=== PATIENT | female | born 1950 | race American Indian/Alaskan Native ===

== ENCOUNTER 2017-12-21 16:13 | Observation (INO) | payer MEDICARE ==
--- NOTE | 2017-12-21 16:30 | Emergency Department Report ---
ED Abdominal Pain HPI - General Chief Complaint: Abdominal Pain Stated Complaint: ABD PAIN/N/V Time Seen by Provider: 12/21/17 16:29 Source: patient (.) - History of Present Illness Initial Comments: States that she had a colonoscopy this morning at [facility], and reports that she is now nauseated and has abdominal pain. Says it just "hurts" and moreso in the "middle going to the left side." She reports feeling like she needs to burp and reports feeling like she has indigestion. She had a colonoscopy about 13 years ago and reports never feeling like this. PMHX of HTN, Hypothyroid, osteo- and rheumatoid arthritis. She recently started smoking in September. Also reports vomiting.She has passed some flatus since the procedure. Pain at this time is staying the same without worsening. MD Complaint: abdominal pain -: hour(s) (6) Location: LLQ, epigastric Radiation: LLQ, epigastric Migration to: epigastric Severity scale (0 -10): 8 Quality: cramping, fullness Consistency: intermittent Worsens With: nothing Context: recent surgery/procedure (colonoscopy) Associated Symptoms: nausea, vomiting, chills. denies: diarrhea, fever, constipation, dysuria, hematemesis, hematochezia, melena, hematuria, anorexia, syncope - Related Data Home Medications Medication Instructions Recorded Confirmed Last Taken ALPRAZolam [Xanax TAB] 0.5 mg PO BID PRN 12/21/17 12/21/17 Unknown Amlodipine Besylate [Norvasc] 5 mg PO QDAY 12/21/17 12/21/17 Unknown Hydroxychloroquine [Plaquenil] 400 mg PO QDAY 12/21/17 12/21/17 Unknown Levothyroxine [Synthroid] 100 mcg PO QDAY 12/21/17 12/21/17 Unknown Losartan/Hydrochlorothiazide 1 tab PO QDAY 12/21/17 12/21/17 Unknown [Hyzaar 100-25 TAB] Oxycodone HCl/Acetaminophen 1 each PO TID 12/21/17 12/21/17 Unknown [Percocet 10/325 mg] Allergies Allergy/AdvReac Type Severity Reaction Status Date / Time metronidazole [From Flagyl] Allergy Hives Verified 12/21/17 17:34 Tetracyclines Allergy Hives Verified 12/21/17 17:34 ED Review of Systems ROS: Stated complaint: ABD PAIN/N/V Other details as noted in HPI Comment: All other systems reviewed and negative Constitutional: weakness Eyes: as per HPI ENT: as per HPI Respiratory: see HPI Cardiovascular: as per HPI. denies: chest pain, palpitations, dyspnea on exertion Gastrointestinal: abdominal pain, nausea, vomiting Genitourinary: as per HPI Musculoskeletal: as per HPI Skin: as per HPI Neurological: as per HPI Psychiatric: as per HPI Hematological/Lymphatic: as per HPI ED Past Medical Hx - Past Medical History Previous Medical History?: Yes - Medications Home Medications: Home Medications Medication Instructions Recorded Confirmed Last Taken Type ALPRAZolam [Xanax TAB] 0.5 mg PO BID PRN 12/21/17 12/21/17 Unknown History Amlodipine Besylate [Norvasc] 5 mg PO QDAY 12/21/17 12/21/17 Unknown History Hydroxychloroquine [Plaquenil] 400 mg PO QDAY 12/21/17 12/21/17 Unknown History Levothyroxine [Synthroid] 100 mcg PO QDAY 12/21/17 12/21/17 Unknown History Losartan/Hydrochlorothiazide 1 tab PO QDAY 12/21/17 12/21/17 Unknown History [Hyzaar 100-25 TAB] Oxycodone HCl/Acetaminophen 1 each PO TID 12/21/17 12/21/17 Unknown History [Percocet 10/325 mg] ED Physical Exam - General General appearance: alert - Head Head exam: Present: atraumatic, normocephalic - Eye Eye exam: Present: normal appearance, PERRL, EOMI - ENT ENT exam: Present: normal exam - Respiratory Respiratory exam: Present: normal lung sounds bilaterally - Cardiovascular Cardiovascular Exam: Present: regular rate, normal rhythm, normal heart sounds - GI/Abdominal GI/Abdominal exam: Present: soft, tenderness (generalized), normal bowel sounds. Absent: distended, guarding, rebound, rigid - Extremities Exam Extremities exam: Present: normal inspection, full ROM, normal capillary refill - Back Exam Back exam: Present: normal inspection - Neurological Exam Neurological exam: Present: alert, oriented X3, CN II-XII intact - Psychiatric Psychiatric exam: Present: normal affect, normal mood - Skin Skin exam: Present: warm, dry, intact, normal color. Absent: rash ED Course Vital Signs 12/21/17 12/21/17 12/21/17 16:32 16:35 16:45 Temperature 99.8 F H Pulse Rate 79 Respiratory 16 Rate Blood Pressure 140/82 151/77 Blood Pressure 140/82 [Right] O2 Sat by Pulse 84 100 100 Oximetry 12/21/17 12/21/17 12/21/17 17:00 17:15 17:39 Temperature Pulse Rate Respiratory 16 Rate Blood Pressure 131/62 144/69 144/69 Blood Pressure [Right] O2 Sat by Pulse 100 100 87 Oximetry 12/21/17 12/21/17 12/21/17 17:46 17:55 18:00 Temperature Pulse Rate Respiratory 16 Rate Blood Pressure 144/69 132/69 Blood Pressure [Right] O2 Sat by Pulse 100 100 Oximetry 12/21/17 12/21/17 12/21/17 18:15 18:30 18:46 Temperature Pulse Rate Respiratory Rate Blood Pressure 153/73 128/64 128/64 Blood Pressure [Right] O2 Sat by Pulse 100 100 100 Oximetry 12/21/17 12/21/17 12/21/17 19:00 19:30 20:00 Temperature 100.7 F H Pulse Rate 89 Respiratory 19 Rate Blood Pressure 150/59 136/63 Blood Pressure 144/57 [Right] O2 Sat by Pulse 99 97 100 Oximetry - Reevaluation(s) Reevaluation #1: 12/21/17 22:20 I discussed the case with her GI doctor who did the colonoscopy over at [facility] this morning. He stated that if the CAT scan was normal then she could go home if she was feeling better. However it appears that the patient continues to have intractable nausea and vomiting. While her belly is soft and there are no signs of an acute abdomen she continues to complain of abdominal pain. Dr. Penn is her GI doctor who performed the procedure today. She did tolerate the procedure well and he does report that there were only 2 very small polyps that were effectively removed during the procedure. Upon reassessment the patient continues to complain of abdominal pain and nausea. She received Zofran multiple times here in the ER. She also appears to be actively having dry heaves at times. I discussed the case with the hospitalist, and this time we will observe the patient. ED Medical Decision Making - Lab Data Result diagrams: 12/21/17 17:10 12/21/17 17:10 Critical care attestation.: If time is entered above; I have spent that time in minutes in the direct care of this critically ill patient, excluding procedure time. ED Disposition Clinical Impression: Abdominal pain Qualifiers: Abdominal location: generalized Qualified Code(s): R10.84 - Generalized abdominal pain Intractable nausea and vomiting Qualifiers: Vomiting type: cyclical vomiting Qualified Code(s): G43.A1 - Cyclical vomiting , intractable Disposition: -09 OP ADMIT IP TO THIS HOSP Is pt being admited?: Yes Does the pt Need Aspirin: No Condition: Stable Instructions: Abdominal Pain (ED)
[2017-12-21] MEDS ORDERED: NACL 0.9% 1000 ML 1,000 ML IV ONE (17:00)
[2017-12-21] MEDS ORDERED: ZOFRAN IV ONE ×2 (17:00→21:58)
[2017-12-21] MEDS ORDERED: TORADOL IV ONE (17:00)
[2017-12-21 17:30] LABS: Basophils # (Auto) 0.1 K/mm3 (0.0-0.1); Basophils % (Auto) 0.5 % (0.0-1.8); Eosinophils # (Auto) 0.1 K/mm3 (0.0-0.4); Eosinophils % (Auto) 0.5 % (0.0-4.3); Hematocrit 37.3 % (30.3-42.9); Hemoglobin 12.5 gm/dl (10.1-14.3); Lymphocytes # (Auto) 0.9 K/mm3 (1.2-5.4); Lymphocytes % (Auto) 8.8 % (13.4-35.0); Mean Corpuscular HGB Conc 33 % (30-34); Mean Corpuscular Hemoglobin 27 pg (28-32); Mean Corpuscular Volume 82 fl (79-97); Monocytes # (Auto) 0.3 K/mm3 (0.0-0.8); Monocytes % (Auto) 3.4 % (0.0-7.3); Platelet Count 251 K/mm3 (140-440); Red Blood Count 4.55 M/mm3 (3.65-5.03); Red Cell Distribution Width 13.5 % (13.2-15.2)
[2017-12-21 17:50] LABS: Alanine Aminotransferase 11 units/L (7-56); BUN/Creatinine Ratio 8; Blood Urea Nitrogen 6 mg/dL (7-17); Calcium 9.8 mg/dL (8.4-10.2); Hemolysis Index 53; Lipase 22 units/L (13-60)
--- NOTE | 2017-12-21 18:31 | Cat Scan Report ---
FINAL REPORT EXAM: CT ABDOMEN PELVIS WO CON HISTORY: Abdominal Pain TECHNIQUE: CT of the abdomen and pelvis was performed without intravenous contrast. Reconstructions were included in the coronal and sagittal planes. PRIORS: None. FINDINGS: Lower thorax: The lung bases are clear. The visualized portions of the heart are normal. Liver: The liver is normal in attenuation. No intrahepatic biliary duct dilation. No focal hepatic lesions. Gallbladder/ biliary system: Cholelithiasis is seen. No gallbladder wall thickening or pericholecystic fluid. The common bile duct appears nondilated. Spleen: No splenic lesions are seen. Pancreas: No pancreatic lesions are seen. No pancreatic duct dilation. Kidneys: No renal masses, cysts or hydronephrosis. No renal or ureteral calcifications. Adrenal glands: No adrenal masses. Vasculature: The abdominal aorta is nondilated. Atherosclerotic calcifications are seen throughout the abdominal aorta. Lymph nodes: No enlarged lymph nodes are seen in the abdomen or pelvis. Bowel, mesentery, peritoneum: No bowel obstruction. No free fluid or free air. The appendix is normal. Colonic diverticulosis is seen. No evidence of diverticulitis. No bowel wall thickening. Submucosal fat is seen in the ascending and transverse colon. Urinary bladder: No filling defects are seen. Pelvis: There is a small amount of free fluid in the pelvis. The uterus is grossly unremarkable. Ovaries are not well seen. Abdominal wall: There is a small fat containing umbilical hernia. Bones: Multilevel degenerative changes are seen in the lumbar spine. Mild grade 1 anterolisthesis of L4 on L5 is likely chronic related to facet arthropathy. IMPRESSION: 1. Submucosal fat within ascending and transverse colon is likely related to chronic or prior inflammation or infection. 2. Cholelithiasis. 3. Small amount of free fluid in the pelvis is likely physiologic. 4. Colonic diverticulosis.
[2017-12-21 20:35] LABS: Bacteria,Urine 1+ /HPF (Negative); Bilirubin,Urine NEG (Negative); Blood,Urine NEG (Negative); Color,Urine Straw (Yellow); Hyaline Casts,Urine 1 /LPF; Mucus,Urine FEW /HPF; Protein,Urine <15 mg/dL mg/dL (Negative); Urobilinogen,Urine < 2.0 mg/dL (<2.0)
[2017-12-21] MEDS ORDERED: K-DUR PO ONE (21:38)
[2017-12-21] MEDS ORDERED: MORPHINE IV ONE (22:20)
[2017-12-21] MEDS ORDERED: MORPHINE ONE (22:25)
--- NOTE | 2017-12-21 22:49 | History and Physical Report ---
History of Present Illness Date of examination: 12/21/17 History of present illness: 67 year old woman with hypertension, hypothyroidism RA comes to the ER for nausea, vomiting after colonoscopy today. She has multiple episodes of vomiting. Also complain of lower abdominal pain, sharp, intensity 5/10, no radiation, cannot identify exacerbating factors, relief with mophine. Review Of Systems: Constitutional: no weight loss Ears, eyes, nose, mouth and throat: no nasal congestion, no nasal discharge, no sinus pressure, blurry vision, diplopia Neck: No neck pain or rigidity. Cardiovascular: No chest pain, palpitations Respiratory: No shortness of breath, cough Gastrointestinal: No hematochezia Genitourinary : no dysuria, frequency , hematuria Musculoskeletal: no muscle ache Integumentary: no rash, no pruritis Neurological: no parathesias, focal weakness Endocrine: no cold or heat intolerance, no polyuria or polydipsia Hematologic/Lymphatic: no easy bruising, no easy bleeding, no gland swelling Allergic/Immunologic: no urticaria, no angioedema. PAST MEDICAL HISTORY: hypertension, hypothyroidism RA PAST SURGICAL HISTORY: Rotator cuff SOCIAL HISTORY: Social alcohol, tobacco, no drugs FAMILY HISTORY: Hypertension Medications and Allergies Allergies Allergy/AdvReac Type Severity Reaction Status Date / Time metronidazole [From Flagyl] Allergy Hives Verified 12/21/17 17:34 Tetracyclines Allergy Hives Verified 12/21/17 17:34 Home Medications Medication Instructions Recorded Confirmed Last Taken Type ALPRAZolam [Xanax TAB] 0.5 mg PO BID PRN 12/21/17 12/21/17 Unknown History Amlodipine Besylate [Norvasc] 5 mg PO QDAY 12/21/17 12/21/17 Unknown History Hydroxychloroquine [Plaquenil] 400 mg PO QDAY 12/21/17 12/21/17 Unknown History Levothyroxine [Synthroid] 100 mcg PO QDAY 12/21/17 12/21/17 Unknown History Losartan/Hydrochlorothiazide 1 tab PO QDAY 12/21/17 12/21/17 Unknown History [Hyzaar 100-25 TAB] Oxycodone HCl/Acetaminophen 1 each PO TID 12/21/17 12/21/17 Unknown History [Percocet 10/325 mg] Exam - Physical Exam Narrative exam: Gen. appearance: Patient lying in bed in no acute distress HEENT: Normocephalic/atraumatic, pupils equal round reactive to light, extra occular movement intact, no scleral icterus, no JVD or thyromegaly or nodule, neck is supple, mucous membrane moist, no erythema or exudate Heart: S1-S2, regular rate and rhythm Lungs: Clear to auscultation bilateral breathing comfortable Abdomen: Positive bowel sounds, nontender, nondistended, no organomegaly Extremities: No edema, cyanosis, clubbing Neuro:: Oriented 3 , cranial nerves II-12 intact, speech, motor intact Skin: No rash, nodules, warm dry - Constitutional Vitals: Temp Pulse Resp BP Pulse Ox 100.7 F H 89 19 136/63 100 12/21/17 19:30 12/21/17 19:30 12/21/17 19:30 12/21/17 20:00 12/21/17 20:00 Results - Labs CBC & Chem 7: 12/21/17 17:10 12/21/17 17:10 Labs: Abnormal lab results 12/21/17 12/21/17 Range/Units 17:10 17:10 MCH 27 L (28-32) pg Lymph % (Auto) 8.8 L (13.4-35.0) % Lymph # 0.9 L (1.2-5.4) K/mm3 Seg Neutrophils % 86.8 H (40.0-70.0) % Seg Neutrophils # 8.4 H (1.8-7.7) K/mm3 Potassium 3.0 L (3.6-5.0) mmol/L BUN 6 L (7-17) mg/dL Glucose 111 H (65-100) mg/dL - Imaging and Cardiology CT scan - abdomen: report reviewed CT scan - pelvis: report reviewed Assessment and Plan Assessment Intractable nausea, vomiting most likely to the anesthesia Abdominal PAin, NOS, due to #1 hypertension hypothyroidism RA Plan Admit to medicine Start IV fluid, morphine, Dvt prophalaxis
[2017-12-21] MEDS ORDERED: MORPHINE IV PRN (22:51)
[2017-12-21] MEDS ORDERED: NACL 0.45% 1000 ML 1,000 ML IV ONE (23:23)
[2017-12-21] MEDS: NACL 0.45% 1000 ML 1,000 ML IV SCH (23:31)
[2017-12-21] MEDS: ZOFRAN IV PRN (23:49)
[2017-12-22 07:34] LABS: Basophils % (Auto) 0.3 % (0.0-1.8); Hematocrit 35.1 % (30.3-42.9); Hemoglobin 11.8 gm/dl (10.1-14.3); Lymphocytes # (Auto) 1.1 K/mm3 (1.2-5.4); Lymphocytes % (Auto) 10.5 % (13.4-35.0); Mean Corpuscular HGB Conc 34 % (30-34); Mean Corpuscular Hemoglobin 28 pg (28-32); Mean Corpuscular Volume 82 fl (79-97); Monocytes # (Auto) 0.9 K/mm3 (0.0-0.8); Platelet Count 271 K/mm3 (140-440); Red Blood Count 4.29 M/mm3 (3.65-5.03); Red Cell Distribution Width 13.6 % (13.2-15.2)
[2017-12-22] MEDS: TYLENOL PO PRN ×2 (07:41→14:20)
[2017-12-22 08:14] LABS: BUN/Creatinine Ratio 8; Blood Urea Nitrogen 7 mg/dL (7-17); Calcium 9.6 mg/dL (8.4-10.2); Hemolysis Index 7
--- NOTE | 2017-12-22 09:49 | Consultation ---
REASON FOR CONSULTATION: Abdominal pain, nausea and vomiting. HISTORY OF PRESENT ILLNESS: Brief consultation, the patient is a 67-year-old woman who underwent a colonoscopy yesterday, but developed some nausea with vomiting and vague abdominal pain yesterday. She was subsequently sent to the Emergency Room for evaluation. CT scan of the abdomen was unremarkable except for gallstones and diverticulosis. She is feeling much better and at this time, would like to go home for continued care on an outpatient basis. PAST MEDICAL HISTORY: 1. Hypothyroidism. 2. Hypertension. 3. Rheumatoid arthritis. PAST SURGICAL HISTORY: Rotator cuff surgery. SOCIAL HISTORY: Does not use any recreational drugs. Drinks alcohol socially and smokes cigarettes. CURRENT MEDICATIONS: See DEC. DRUG ALLERGIES: FLAGYL, which gives hives and TETRACYCLINE. Social history as outlined above. FAMILY HISTORY: Noncontributory. REVIEW OF SYSTEMS: Feeling much better at this time, but had vomiting and vague abdominal pain post-surgery. PHYSICAL EXAMINATION: GENERAL: The patient is a pleasant middle-aged -[place] woman in no acute distress. VITAL SIGNS: Show BP of 135/75, pulse of 85 per minute, respiratory rate of 18, temperature of 99.6. HEENT: Pupils equal, round, reactive to light. She is anicteric. NECK: Supple, with no JVD. LUNGS: Clear to auscultation. HEART: S1, S2 heard. ABDOMEN: Soft, nontender. Liver, spleen, and kidneys not palpable. Bowel sounds are present and normoactive. EXTREMITIES: Reveals no pedal edema or cyanosis. NEUROLOGIC: She is alert and oriented to time, person, and place with no focal deficit. ASSESSMENT AND PLAN: 1. Nausea and vomiting, resolved. 2. Abdominal pain, resolved. 3. Diverticulosis. 4. Gallstones. She is feeling much better at this time. Given the fact that she had a low grade fever of 100.1, although she had a heating pad on one must worry about a slight risk of aspiration pneumonia. It is most likely that she had a reaction to the anesthesia, doubt active pneumonia or any disease, but I will place her empirically on Levaquin 500 mg p.o. daily for 7 days. She will be seen again by me in 2 days or next week. We will follow her on outpatient basis. She was advised to come back to the hospital or give me a call if she develops a fever, severe abdominal pain, or any kind of untoward reaction. this line of management was carefully discussed with the patient and her son and they verbalized understanding. Thank you very much for allowing me to participate in management of your patient. I do appreciate it. JOB# [id number] BRIGID/NTS MTDD
[2017-12-22] MEDS ORDERED: LOVENOX SUB-Q SCH (10:00)
[2017-12-22] MEDS: LEVAQUIN PO SCH (10:33)
[2017-12-22] MEDS: LOVENOX SUB-Q SCH (10:33)
[2017-12-22] MEDS ORDERED: K-DUR PO ONE (11:04)
--- NOTE | 2017-12-22 14:16 | Progress Note ---
Assessment and Plan Intractable nausea, vomiting most likely to the anesthesia Abdominal PAin, NOS, due to colitis ? Hypokalemia likely from GI loss hypertension hypothyroidism h/o RA - cont supportive care, clear liquid diet - cont IV fluid, morphine, Dvt prophalaxis - placed on levaquin for posible gastroenteritis - resume home meds, repeat potassium and monitor BMP Brief history: 67 year old woman with hypertension, hypothyroidism, RA comes to the ER for nausea, vomiting after colonoscopy. She has multiple episodes of vomiting. Admitted for further monitoring. Radiological test: CT abdomen and pelvis: Submucosal fat within the ascending and transverse colon is likely related to chronic primary inflammation or infection, cholelithiasis, small amount of free fluid in the pelvis is likely physiologic, colonic diverticulosis Hospitalist Physical exam: GENERAL: well-developed and well-nourished AAF lying on bed appeared to be in no discomfort. HEENT: Normocephalic. Atraumatic. No conjunctival congestion or icterus. Patient has moist mucous membranes. NECK: Supple. Trachea midline. CHEST/LUNGS: Clear to auscultated bilaterally, breathing nonlabored. No wheezes crackles or rhonchi. HEART/CARDIOVASCULAR: Regular in rate and rhythm. S1 and S2 positive. ABDOMEN: Abdomen is soft, mild diffuse tender. Patient has normal bowel sounds. SKIN: There is no rash. Warm and dry. NEURO: No focal motor deficit. Follows command. MUSCULOSKELETAL: No joint effusion or tenderness. EXTRIMITY: No edema, no cyanosis or clubbing. PSYCH: Cooperative. Subjective Date of service: 12/22/17 Interval history: Patient seen and examined. Medical records and medication list reviewed. No acute event overnight noted by the RN. Patient denies any chest pain or difficulty breathing. Patient is not tolerating regular diet. c/o nausea/vomiting Discussed plan of care at bedside with patient. Objective - Constitutional Vitals: Vital Signs - 12hr 12/22/17 12/22/17 12/22/17 05:08 08:30 08:41 Temperature 99.6 F 100.0 F H Pulse Rate 84 Respiratory 18 18 18 Rate Blood Pressure 135/75 124/60 O2 Sat by Pulse 99 Oximetry - Labs CBC & Chem 7: 12/22/17 06:57 12/23/17 09:40 Labs: Abnormal lab results 12/21/17 12/21/17 12/22/17 Range/Units 17:10 17:10 06:57 MCH 27 L (28-32) pg Lymph % (Auto) 8.8 L 10.5 L (13.4-35.0) % Steele % (Auto) 9.0 H (0.0-7.3) % Lymph # 0.9 L 1.1 L (1.2-5.4) K/mm3 Steele # 0.9 H (0.0-0.8) K/mm3 Seg Neutrophils % 86.8 H 80.2 H (40.0-70.0) % Seg Neutrophils # 8.4 H 8.1 H (1.8-7.7) K/mm3 Potassium 3.0 L (3.6-5.0) mmol/L BUN 6 L (7-17) mg/dL Glucose 111 H (65-100) mg/dL 12/22/17 Range/Units 06:57 MCH (28-32) pg Lymph % (Auto) (13.4-35.0) % Steele % (Auto) (0.0-7.3) % Lymph # (1.2-5.4) K/mm3 Steele # (0.0-0.8) K/mm3 Seg Neutrophils % (40.0-70.0) % Seg Neutrophils # (1.8-7.7) K/mm3 Potassium 3.0 L (3.6-5.0) mmol/L BUN (7-17) mg/dL Glucose (65-100) mg/dL
[2017-12-22] MEDS: NACL 0.45% 1000 ML 1,000 ML IV SCH (16:47)
[2017-12-23] MEDS: NACL 0.45% 1000 ML 1,000 ML IV SCH (03:02)
[2017-12-23] MEDS: ZOFRAN IV PRN ×2 (03:05→08:33)
--- NOTE | 2017-12-23 07:37 | Event Note ---
Date: 12/23/17 Ms Kizzy Lala is a 67 year lod woman who had N&V with mild abdominal pain post colonoscopy. Although her vital signs were stable and her abdominal exam was benign, she was sent to the ER for evaluation and a CT scan CT was unremarkable and did not show any free air or fluids and her WBC was normal. She was admitted for observation. I saw her yesterday am and she was in good spirits and ready to go home. Vitals signs are stable and her abdominal pain, N&V had resolved and her abdomen was soft and non tender From a GI standpoint, she is Ok for outpatient care. She was advised to see me 2 -5 days after discharge. Impression is probably reaction to anesthesia Suggest: 1. Levaquin 500mg for I week for possible mild aspiration pnemonitis, albiet unlikely 2. Empiric care with Zofran for N&V and Bentyl for prn abdominal pain 3. Outpatient GI care Thanks everyone for all you care
[2017-12-23] MEDS: LOVENOX SUB-Q SCH (09:13)
[2017-12-23] MEDS: LEVAQUIN PO SCH (09:13)
[2017-12-23 10:22] LABS: BUN/Creatinine Ratio 9; Blood Urea Nitrogen 8 mg/dL (7-17); Calcium 9.6 mg/dL (8.4-10.2); Hemolysis Index 16
[2017-12-23] MEDS ORDERED: XANAX PO PRN (11:16)
[2017-12-23] MEDS ORDERED: KCL 10MEQ/100ML 10 MEQ/100 ML BAG IV SCH (12:00)
[2017-12-23] MEDS ORDERED: PROTONIX IV SCH (12:00)
[2017-12-23] MEDS ORDERED: PERCOCET 5/325 PO PRN (12:09)
[2017-12-23 12:23] VITALS: BP 141/72
[2017-12-23] MEDS ORDERED: NORVASC PO SCH (13:00)
[2017-12-23] MEDS ORDERED: PLAQUENIL PO SCH (13:00)
[2017-12-23] MEDS ORDERED: KCL 30 MEQ in NACL 0.9% 500 ML 300 ML IV ONE (13:30)
[2017-12-23] MEDS ORDERED: PROTONIX PO SCH (13:30)
--- NOTE | 2017-12-23 13:42 | Discharge Summary ---
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 She has multiple episodes of vomiting. In the ER a CT scan was done, CT was unremarkable and did not show any free air or fluids and her WBC was normal. She was admitted for observation. Her abdomen was benign, GI was consulted, she was advised to follow up with GI as outpt 2-5 days after discharge. Patient was placed on abx for possible colitis. She did ot c/o any diarrhea or bloody stool. Her home meds resumed, discharged home in stable condition. Discharge diagnosis: Intractable nausea, vomiting most likely to the anesthesia Abdominal PAin, possible colitis, improved Hypokalemia likely from GI loss hypertension hypothyroidism h/o RA, h/o anxiety and chronic pain Radiological test: CT abdomen and pelvis: Submucosal fat within the ascending and transverse colon is likely related to chronic primary inflammation or infection, cholelithiasis, small amount of free fluid in the pelvis is likely physiologic, colonic diverticulosis Hospitalist Physical exam: GENERAL: well-developed and well-nourished AAF lying on bed appeared to be in no discomfort. HEENT: Normocephalic. Atraumatic. No conjunctival congestion or icterus. Patient has moist mucous membranes. NECK: Supple. Trachea midline. CHEST/LUNGS: Clear to auscultated bilaterally, breathing nonlabored. No wheezes crackles or rhonchi. HEART/CARDIOVASCULAR: Regular in rate and rhythm. S1 and S2 positive. ABDOMEN: Abdomen is soft, non tender. Patient has normal bowel sounds. SKIN: There is no rash. Warm and dry. NEURO: No focal motor deficit. Follows command. MUSCULOSKELETAL: No joint effusion or tenderness. EXTRIMITY: No edema, no cyanosis or clubbing. PSYCH: Cooperative. Disposition: DC- TO HOME OR SELFCARE Time spent for discharge: 32 minutes Core Measure Documentation - Palliative Care Palliative Care/ Comfort Measures: Not Applicable - Core Measures Any of the following diagnoses?: none Exam - Constitutional Vitals: Temp Pulse Resp BP Pulse Ox 99.3 F 78 18 141/72 100 12/23/17 07:53 12/23/17 12:21 12/23/17 10:00 12/23/17 12:21 12/23/17 10:00 Plan Activity: advance as tolerated Weight Bearing Status: Non-Weight Bearing Diet: low fat, low cholesterol, advance as tolerated Follow up with: PRIMARY CARE,MD [Primary Care Provider] - 3-5 Days Prescriptions: Levofloxacin [Levaquin TAB] 500 mg PO QDAY #5 tablet Ondansetron [Zofran TAB] 4 mg PO Q8HR PRN #20 tablet PRN Reason: Nausea
[2017-12-23] MEDS ORDERED: NON-FORMULARY (Oxycodone Hcl/Acetaminophen [Percocet 10/325 Mg] 1 EACH) PO SCH (14:00)
[2017-12-23] MEDS ORDERED: K-DUR PO ONE (14:09)
[2017-12-23] MEDS ORDERED: D5NS 1,000 ML IV SCH (15:00)
--- NOTE | 2017-12-23 23:53 | Consultation ---
INDICATION: Nausea, vomiting. HISTORY OF PRESENT ILLNESS: The patient is a 67-year-old black female who is being seen by GI for nausea, vomiting. The patient reports she had a colonoscopy today by Dr. Penn. The patient reports colonoscopy showed no significant pathology. The patient reports that after sometime, she started having severe nausea, vomiting. She reports she was unable to keep anything down. She reports some upper abdominal pain with these symptoms. She denies history of nausea, vomiting prior. She denies any lower GI symptoms including diarrhea, constipation or rectal bleeding. Denies any weight loss. The patient subsequently came to Emergency Room where she was seen and admitted. PAST MEDICAL HISTORY: 1. Hypertension. 2. Hypothyroidism. 3. Rheumatoid arthritis. MEDICATIONS: See chart. ALLERGIES: No known drug allergies. SOCIAL HISTORY: Denies alcohol, tobacco, or IV drug abuse. FAMILY HISTORY: Negative for colon cancer, IBD, or liver disease. REVIEW OF SYSTEMS: GENERAL: Reports mild weakness. HEENT: No visual complaints or tinnitus. PULMONARY: Denies shortness of breath. No cough. No chest pain. GASTROINTESTINAL: Reports nausea, vomiting. All points of a 13-point review of systems otherwise negative. PHYSICAL EXAMINATION: VITAL SIGNS: Temperature of 99.3, pulse 81, respirations 18, blood pressure 137/66. GENERAL: Fairly nourished, but thin black female in no acute distress. HEENT: Pupils equal, round and reactive. PULMONARY: Clear to auscultation bilaterally. CARDIOVASCULAR: Regular rhythm. Normal S1, S2. ABDOMEN: Positive bowel sounds, soft. SKIN: No obvious rashes. LABORATORY DATA: Pertinent for white count of 10, hemoglobin and hematocrit 11.8 and 35.1, platelet count of 271. Chem-7 within normal limits except for potassium of 3.2. CT scan showed no significant GI pathology. ASSESSMENT AND PLAN: A 67-year-old female presented with nausea, vomiting after having a colonoscopy earlier today. The patient since that time has been stable. Agree with medications. She reports her nausea and vomiting is improving. She denies any epigastric pain. She is tolerating p.o. Management is noted below. PLAN: 1. Antiemetics p.r.n. 2. Advance diet. 3. Okay to discharge from GI standpoint, will follow up with Dr. Penn as an outpatient. 4. We will sign off, call if needed. JOB# [id number] CAB/NTS
[2017-12-24] MEDS ORDERED: SYNTHROID PO SCH (06:00)
[2017-12-24] MEDS ORDERED: LEVAQUIN 750MG/150ML 750 MG/150 ML BAG IV SCH (10:00)
--- NOTE | 2017-12-28 16:28 | Query- General ---
Ranjeet Arellano Nancy Date:____12/28/17 School [employer] Director/CDS: Josueesau / Raji Phone#:___[phone] Exercise your independent professional judgment when responding to this query. Questions asked do not imply a particular answer is desired or expected. We greatly appreciate your clarification on this issue. Clinical Documentation States: 67 year old female was admitted on 12/21/17 The discharge summary (Dr. Cruz) states " 67 year old woman with hypertension, hypothyroidism, RA came to the ER for nausea, vomiting after colonoscopy. Discharge diagnosis: Intractable nausea, vomiting most likely to the anesthesia Abdominal PAin, possible colitis, improved " The Event note (12/23/17) states " 1. Levaquin 500mg for I week for possible mild aspiration pnemonitis, albiet unlikely " Given the above clinical scenario can you please provide an appropriate diagnosis based on your knowledge of the patient: PHYSICIAN RESPONSE: [ ] Aspiration pneumonitis ruled in [ ] Aspiration pneumonitis ruled out [ ] Other (Please specify) Present on Admission: [ ] Yes (Y) [ ] Clinically undeterminable (W) [ ]No(N) Please also document response in your Progress Notes and/or Discharge Summary and indicate if the condition was present on admission. MTDD
== END 2017-12-23 17:40 | disposition home or self-care (01) ==
LOC: ED 16:13 → INTOOBSV 22:48 → 2B-ACE 22:48
PROVIDERS: ADMIT Internal Medicine; ATTEND Internal Medicine
DX: T88.59XA Other complications of anesthesia, initial encounter (principal); T41.45XA Adverse effect of unspecified anesthetic, initial encounter; I10 Essential (primary) hypertension; E87.6 Hypokalemia; E03.9 Hypothyroidism, unspecified; M06.9 Rheumatoid arthritis, unspecified; R10.9 Unspecified abdominal pain; F17.210 Nicotine dependence, cigarettes, uncomplicated; K57.90 Diverticulosis of intestine, part unspecified, without perforation or abscess without bleeding; K80.80 Other cholelithiasis without obstruction; F41.9 Anxiety disorder, unspecified; M19.90 Unspecified osteoarthritis, unspecified site; G62.9 Polyneuropathy, unspecified; Y84.8 Other medical procedures as the cause of abnormal reaction of the patient, or of later complication, without mention of misadventure at the time of the procedure; Y92.89 Other specified places as the place of occurrence of the external cause
CPT/HCPCS: 36415; 74176; 80048; 80053; 81001; 82150; 83690; 85025; 87040; 96361; 96365; 96366; 96372; 96375; 96376; 99285; G0378; J1650; J1885; J2270; J2405; J3480; J7030; J7040; 96374